=== PATIENT | male | born 1990 | race Caucasian/White ===

== ENCOUNTER → 2018-02-21 09:25 | Outpatient (CLI) | payer OTHER, SELFPAY ==
--- NOTE | 2018-02-21 | DI.ECHO.S_ITS ---
[facility] +---------+ : : [address] : [place] : : : : [id number] : : : : Phone: [phone]---------+ Echocardiogram Report + + :Name: GEOVANNA BAEZ Study Date: 02/21/2018 Height: 74 in : :[facility] Weight: 173 lb: : Gender: Male BSA: 2.0 m2 : :: 1990 Age: 27 yrs BP: 90/48 mmHg: :Reason For Study: QTC : : Performed By: Bibiana Schmitt : :Referring: SHERI SMILEY : + + Interpretation Summary The left ventricle is normal in size, wall thickness, and systolic function without any focal wall motion abnormalities. The ejection fraction is estimated to be 60-65%. The right ventricle is normal size. The right ventricular systolic function is normal. No significant valvular pathology seen. Procedure: A two-dimensional transthoracic echocardiogram with color flow and Doppler was performed. The study quality was technically good. There is no prior echocardiogram noted for this patient. The patient was in normal sinus rhythm during the exam. Left Ventricle: There is normal left ventricular wall thickness. There is a no left ventricular aneurysm. The left ventricle is normal in size, wall thickness, and systolic function without any focal wall motion abnormalities. There is no thrombus. The ejection fraction is estimated to be 60-65%. Left ventricular wall motion is normal. Assessment of diastolic parameters indicates normal left ventricular diastolic function and normal filling pressures. Right Ventricle: The right ventricle is normal size. The right ventricular systolic function is normal. Atria: The left atrial size is normal. Right atrial size is normal. The interatrial septum is intact with no evidence for an atrial septal defect. Mitral Valve: The mitral valve is normal in structure and function. There is trace mitral regurgitation. Aortic Valve: The aortic valve opens well. The aortic valve is trileaflet. There is no aortic valve stenosis. No aortic regurgitation is present. Tricuspid Valve: The tricuspid valve is normal in structure and function. There is a trace or physiologic amount of tricuspid regurgitation. The right ventricular systolic pressure is estimated at 26 mmHg assuming a right atrial pressure of 3 mm Hg. Pulmonic Valve: The pulmonic valve is normal in structure and function. There is no pulmonic valvular regurgitation. Great Vessels: The aortic root is normal size. The dimensions of the ascending aorta are normal. The IVC is of normal diameter and collapses greater than 50% with a sniff. This suggests a low right atrial pressure of 3 mm Hg. Pericardium/ Pleura There is no pericardial effusion. There is no pleural effusion. MMode/2D Measurements & Calculations LVIDd: 4.9 cm Ao root diam: 3.2 cm LVIDs: 3.3 cm Aortic Jxn: 2.2 cm FS: 31.6 % asc Aorta Diam: 2.5 cm EPSS: 0.64 cm Ao Arch Diam (Prox Trans): 2.3 cm IVSd: 0.67 cm LVPWd: 0.88 cm LV villar. diameter/BSA (cm/m^2): 2.4 LV sys. diameter/BSA (cm/m^2): 1.6 LA dimension: 4.0 cm RA long axis: 4.3 cm LA A2 area: 18.2 cm2 RA area: 12.5 cm2 LA A4 area: 14.9 cm2 RA vol: 30.9 ml LA length (vol): 5.0 cm RA : 15.1 ml/m2 LA vol: 46.0 ml IVC diam: 1.8 cm LA vol index: 22.5 ml/m2 RVDd major: 8.1 cm RVD1 (basal): 3.1 cm RVD2 (mid): 3.6 cm Doppler Measurements & Calculations Ao V2 max: 136.5 cm/sec MV E max corbin: 100.1 cm/sec Ao V2 mean: 86.5 cm/sec MV A max corbin: 52.2 cm/sec Ao max P.5 mmHg MV E/A: 1.9 Ao mean P.6 mmHg Med Peak E' Corbin: 11.4 cm/sec Ao V2 VTI: 28.3 cm E/E' med: 8.8 Lat Peak E' Cobrin: 17.3 cm/sec E/E' lat: 5.8 E/e' average: 7.3 MV dec time: 0.22 sec MV P1/2t: 66.2 msec TR max corbin: 238.1 cm/sec MV P1/2t max corbin: 99.6 cm/sec TR max P.7 mmHg MVA(P1/2t): 3.3 cm2 PA V2 max: 86.0 cm/sec PA V2 mean: 59.8 cm/sec PA mean P.6 mmHg Reading Physician:PM
== END ==
PROVIDERS: Visit Provider Physician Assistant
DX: R00.2 Palpitations (principal)
CPT/HCPCS: 93306